=== PATIENT | male | born 1995 | race African-American/Black ===

== ENCOUNTER 2021-03-07 09:26 | Emergency (ER) | payer MEDICAID ==
[~2021-03-07] VITALS: Ht 182.9 cm; Wt 81.6 kg
[2021-03-07 09:39] VITALS: BP_SYST 141
[2021-03-07] MEDS ORDERED: ONDANSETRON 4 MG ODT TAB PO ONE (09:45)
[2021-03-07] MEDS ORDERED: ACETAMINOPHEN 500 MG TABLET PO ONE (09:45)
[2021-03-07] MEDS ORDERED: METOCLOPRAMIDE HCL 10 MG TABLET PO ONE (09:45)
[2021-03-07] MEDS ORDERED: ONDA-8 TL (10:40)
[2021-03-07 10:48] VITALS: BP_SYST 135
== END 2021-03-07 10:48 | disposition home or self-care (01) ==
LOC: SED 09:26 → EDBD 09:26 → SED 10:48
DX: B34.9 Viral infection, unspecified (principal); R11.2 Nausea with vomiting, unspecified; R53.81 Other malaise; Z20.822 Contact with and (suspected) exposure to COVID-19
CPT/HCPCS: 99284; J8597; Q0162; U0003